=== PATIENT | female | born 1970 | race Caucasian/White ===

== ENCOUNTER 2016-12-03 11:11 | Outpatient (CLI) | payer BC ==
[~2016-12-03 11:11] MED LIST: ACET-1311 PO; AMB10 PO; ASPEC325 PO; BUPR75TA20 PO; CHOL1000 PO; CLRD24 PO; CLTP PO; CNC36 PO; DIME50TA49 PO; DOXY25TA7 PO; ESTROGEN; IBUP-1050 PO; LYSINE PO; PRENTAB26 PO; PROGSUP4 VA; PYRI1TAB40 PO; SERT50TA PO; VALA500T60 PO
[2016-12-03] MEDS ORDERED: LACTATED RINGER'S 1000ML 500 ML IV ONE (11:20)
[2016-12-03] MEDS ORDERED: LACTATED RINGER'S 1000ML 1,000 ML IV SCH (11:20)
[2016-12-03] MEDS ORDERED: MAGNESIUM SULFATE / WTR 1,000 ML IV ONE (11:33)
[2016-12-03] MEDS ORDERED: BETAMETH SOD PHOS/ACETATE IA 6 MG/ML IM STA (11:34)
[2016-12-03] MEDS ORDERED: MAGNESIUM SULFATE 4GM / WTR 100ML IV ONE (11:45)
[2016-12-03] MEDS ORDERED: VANCOMYCIN INJ 1,000 MG in SODIUM CHLORIDE 0.9% 250ML 250 ML IV ONE (12:00)
[2016-12-03] MEDS ORDERED: TOBRAMYCIN/DEXAMETHASONE OPH OINT 3.5 GM TUBE OP SCH (12:01)
[2016-12-03] MEDS ORDERED: ONDANSETRON INJ 2 MG/ML 2 ML VIAL ONE (12:12)
[2016-12-03] MEDS ORDERED: ONDANSETRON INJ 2 MG/ML 2 ML VIAL IV STA (12:14)
[2016-12-03] MEDS ORDERED: MAGNESIUM SULFATE 40GM / WTR 1000 ML IV SCH (12:30)
--- NOTE | 2016-12-03 12:44 | HISTORY & PHYSICAL EXAMINATION ---
DATE OF ADMISSION: 12/03/2016 CHIEF COMPLAINT: Rupture of membranes. HISTORY OF PRESENT ILLNESS: The patient is a 45-year-old white female para 0-1-3-1, who is 30.2 weeks with premature rupture of membranes with a twin gestation. She is Di-Di twins with donor sperm. She presents this morning with rupture of membranes, clear fluid. She is liban approximately every 4 minutes and has a history of premature rupture of membranes with her past at 35 weeks at [place]. PAST MEDICAL HISTORY: Positive for anxiety and a history of abnormal Pap smear. She has a history of delivery in the past. PAST SURGICAL HISTORY: None. REVIEW OF SYSTEMS: Negative. FAMILY HISTORY: Noncontributory. ALLERGIES: PENICILLIN. MEDICATIONS: vitamins. PHYSICAL EXAMINATION: HEENT: Left eye with conjunctivitis, untreated. LUNGS: Clear to auscultation. CARDIOVASCULAR: Regular rate and rhythm. ABDOMEN: Soft, gravid. heart tone category, A twin category 1 tracing and B category 1 tracing. EXTREMITIES: Within normal limits. No edema. No rash. PELVIC: Cervix is checked. There is a gross rupture of membranes, clear fluid, fingertip, 50%, and -3. ASSESSMENT: premature rupture of membranes at 30 weeks and 2 days with twin gestation. PLAN: Transfer to [facility]. Discussed the plan of treatment with Dr. Edwards at [facility] [place] extraction supervisor OB. We will start IV antibiotics, steroids and magnesium for contractions . MTDD
--- NOTE | 2016-12-03 12:55 | Progress Note ---
Progress Note Date of Service Dec 03, 2016. Progress Note rechecked patient prior to transfer cervix is ft/60/-2 FHT A Cat1 FHT B Cat1 stable for transport [place] [facility] [place]
== END 2016-12-03 13:15 | disposition home or self-care (01) ==
LOC: C.OPB 11:11 → C.LD 11:12 → C.OPB 13:15
PROVIDERS: ATTEND Obstetrics & Gynecology
DX: O42.913 Preterm premature rupture of membranes, unspecified as to length of time between rupture and onset of labor, third trimester (principal); O30.043 Twin pregnancy, dichorionic/diamniotic, third trimester; O09.523 Supervision of elderly multigravida, third trimester; Z3A.30 30 weeks gestation of pregnancy; Z88.0 Allergy status to penicillin